=== PATIENT | male | born 1975 | race Caucasian/White ===

== ENCOUNTER 2020-05-26 22:42 | Emergency (ER) | payer SELFPAY ==
[2020-05-26 23:13] VITALS: BP 158/84; PULSE 50; RESP 18; TEMP 36.6; O2SAT 97; BMI 22.8
--- NOTE | 2020-05-26 23:34 | W.ED.DENTAL ---
HPI - Dental/Oral General: Chief complaint: Dental/Oral Stated complaint: dental pain Time Seen by Provider: 05/26/20 23:20 Source: patient Mode of arrival: ambulatory Limitations: no limitations History of Present Illness: HPI Narrative: Patient complains of right lower dental discomfort on the molar 31. Patient appears well. Patient has minimal to no swelling to the jawline. Patient does report history of similar pain. Review of Systems General: Reports: 10 or more systems reviewed and unremarkable except in HPI and below ENMT: Reports: other (dental pain) [facility] ED PFSH: Social History (Updated 12/26/19 @ 12:01 by Betty Brown LPN) Smoking and tobacco status: current every day smoker cigarettes Packs smoked per day: 1 Alcohol intake: never History of recent travel: No Physical Exam Const: COMMON NORMALS: no acute distress and patient oriented x3 GENERAL APPEARANCE: cooperative HENMT: COMMON NORMALS: normocephalic, TM's normal bilaterally and Normal external nose present HEAD & SCALP: normal to inspection and normocephalic NOSE: Normal external nose present TYMPANIC MEMBRANE: TM's normal bilaterally MOUTH: Normal oral and palatal mucosa present THROAT: posterior oropharynx normal Eye: GENERAL EYE: appearance normal, both eyes and all related structures Neck/C-Spine: COMMON NORMALS: full ROM Lymph: LYMPHATIC: no lymphadenopathy noted Chest: COMMONS NORMALS: normal inspection of the chest Resp: COMMON NORMALS: normal respiratory effort EFFORT & INSPECTION: Yes able to speak in complete sentences Cardio: COMMON NORMALS: regular rate and regular rhythm RATE: regular rate RHYTHM: regular rhythm GI: COMMON NORMALS: non-tender Back/Pelvis: COMMON NORMALS: thoracic and lumbar spine normal to inspection Extremity: COMMON NORMALS: normal to inspection Neuro: COMMON NORMALS: patient oriented x3 and moves all extremities Psych: COMMON NORMALS: mental status grossly normal and cooperative Skin: COMMON NORMALS: no rashes or lesions noted GENERAL SKIN EXAM: no rashes or lesions noted Procedures Nerve Block Nerve Block 1: Local Anesthetic: lidocaine 1% and bupivacaine 0.5% Amount of anesthesia used (mL): 4 Side: right Nerve Blocks: other Intraoral Nerve Block: inferior alveolar Procedure Successful: Yes Patient Tolerated Procedure: well Complications: none Additional Comments: Procedure was repeated once due to poor results with the first attempt. Patient had good attempt after the second infiltration. Course Vital Signs: Vital signs: Vital Signs Temperature 97.9 F 05/26/20 23:13 Pulse Rate 50 L 05/26/20 23:13 Respiratory Rate 18 05/26/20 23:13 Blood Pressure 158/84 05/26/20 23:13 Pulse Oximetry 97 05/26/20 23:13 MDM - Dental/Oral MDM Narrative: Medical decision making narrative: Patient comes in today with complaints of right lower dental pain. On exam patient appears well. Respirations are even lungs are clear to auscultation. Patient had tenderness in the third molar area. Minimal swelling was noted to the area. Posterior pharynx was otherwise normal. Differential diagnosis includes but not limited to periapical abscess, impacted wisdom tooth, odontalgia. Patient was given a dental block with good results. Patient be placed on antibiotic and ibuprofen recommended to follow-up with dentist. Patient reported understanding agreed to plan. Discharge Plan Discharge Patient Disposition: Home Clinical Impression: Impacted third molar tooth, Toothache Condition: Stable Prescriptions: New penicillin V potassium 500 mg tablet 500 mg PO QID 10 Days Qty: 40 RF: 0 ibuprofen 800 mg tablet 800 mg PO Q8H PRN (Reason: pain) Qty: 20 RF: 0 No Action ibuprofen 200 mg tablet 800 mg PO BID PRNRF: 0 acetaminophen [Tylenol Extra Strength] 500 mg tablet 500 mg PO BID PRNRF: 0 Discharge Orders: Discharge Order (Routine); Ordered 05/27/20 Ordered By: Paulino Rai Discharge Diet: Usual diet Discharge Activity: Increase activity as tolerated Activity Restrictions/Additional Instructions: Home and rest. Drink plenty of fluids. Good oral care. Follow-up with dentist for further evaluation and treatment. Discharge Date/Time: 05/27/20 00:10 Coding Level of Care Code ED Calendering Machine Operator for Chg Fwd Exam Comprehensive
[2020-05-27] MEDS: penicillin v potassium 250 mg Tablet 500 MG PO (00:07)
== END 2020-05-27 00:10 | disposition home or self-care (01) ==
PROVIDERS: Emergency Provider Nurse Practitioner Family
DX: K01.1 Impacted teeth (principal); F17.210 Nicotine dependence, cigarettes, uncomplicated
CPT/HCPCS: 12345; 99281; 99283; J3490

== ENCOUNTER 2020-05-29 15:27 | Emergency (ER) | payer SELFPAY ==
[2020-05-29] VITALS (13 sets, daily range): BP systolic 81–143; BP diastolic 46–81; PULSE 84–122; RESP 14–28; TEMP 37.3; O2SAT 94–100; BMI 22.8
--- NOTE | 2020-05-29 15:59 | CT_ITS ---
WS: [id number] EXAM: CT neck w con* [id number] DATE OF EXAMINATION: 05/29/2020, 1628 hours COMPARISON: None. HISTORY: 45 years old with neck pain and swelling. Dental pain. Clinical working diagnosis of tooth abscess. TECHNIQUE: Transaxial computed tomography images obtained through the neck utilizing 95 mL of Omnipaq ue 300 IV contrast with images acquired in the bolus phase and viewed in multiple windows with recons tructions. DLP: 714.[address] scans at [facility] use at least one of these dose optimization techniques: automat ed exposure control; mA and/or kV adjustment per patient size (includes targeted exams where dose is matched to clinical indication); or iterative reconstruction. FINDINGS: The visualized mid and inferior intracranial contents are unremarkable. Some mild changes of arthriti s are seen in the cervical spine without evidence of canal compromise. Nasopharyngeal region is normal in appearance. Parapharyngeal fat planes are normal in appearance. To nsillar pillars are slightly prominent. Soft palate is normal in appearance. Tongue is normal in appe arance. There is edema within the sublingual space as well as in the floor the mouth. Extensive edema and fluid is seen in the floor the mouth and cervical juncture region. Gas in the soft tissues is de monstrated. On the right appears to involve the right submandibular salivary gland as well as the tis maddy plane between the mylohyoid muscle and the genioglossus muscle. This is seen bilaterally. On the left the gas extends peripherally superficial to the submandibular salivary gland deep to the platysm as muscle. There appears to be a unruptured right third molar with gas in the area around the tooth w hich appears to breach the cortex and is presumably the site of the infection. Enlargement of the ton sillar pillars is seen. Epiglottis is not appreciably enlarged. Aryepiglottic folds, vocal cords and subglottic airway are normal appearance. Thyroid gland is normal appearance. Lung apices are clear. T here is a small amount of gas within the right internal jugular vein. Most likely this is iatrogenic since the injection was performed from the right upper extremity side rather than gas extending into the internal jugular vein. There is edema which is tracking along the superficial fascial margins to the level of the thoracic inlet. Edema and fluid is superficial to the left sternocleidomastoid muscl e. The abscess pocket appears to extend and unite anteriorly at the level of the hyoid bone. Shotty adenopathy is seen in the anterior cervical chains. Slight shotty lymph nodes are seen in the retrojugular chains. CT/CT neck w con* [id number] IMPRESSION: Imaging findings felt to represent necrosing fasciitis associated with David's angina. Gas and abscess formation in the floor the mouth and cervical junction region demonstrated. Emergent ENT surgeon evaluation and treatment recommended .
--- NOTE | 2020-05-29 16:03 | ED_ITS ---
HPI - General Adult General: Chief complaint: Airway/Esophagus Foreign Body Stated complaint: DENTAL PAIN Time Seen by Provider: 05/29/20 15:53 Source: patient Mode of arrival: ambulatory Limitations: no limitations History of Present Illness: HPI narrative: Mr. Judge is a 45-year-old male who comes in complaining of bilateral mandible and neck pain. Patient stated Thursday he began to have pain in his right lower molar that since that time has progressed to both sides of his jaw and in the lower part of his mouth and throat. Patient is able to handle his own saliva and is able to talk without hoarseness but he states it hurts to swallow and it hurts to speak. He denies any fevers or chills. Patient was seen here initially for this infection and started on penicillin but states his pain has continued and increased. Patient denies any injury to his mouth. Patient is able to handle his own secretions but states that his pain is worsening. Associated symptoms: Deny chest pain, dyspnea, headache(s), nausea, rash, palpitations, syncope or vomiting Review of Systems Const: Denies: fever(s) Eyes: Denies: change in vision or blurry vision ENMT: Reports: throat pain, odynophagia and dental pain; Denies: hoarseness Card: Denies: chest pain, palpitations, syncope, pre-syncope or dyspnea on exertion Resp: Denies: dyspnea, productive cough or non-productive cough GI: Denies: abdominal pain, nausea, vomiting or diarrhea : Denies: flank pain, dysuria, urinary frequency or urinary urgency Musc: Denies: neck pain, back pain or extremity pain Skin/Breast: Denies: rash or pruritus Neuro: Denies: headache(s), numbness in extremities, weakness in extremities or dizziness [facility] ED PFSH: Medical History (Updated 05/29/20 @ 19:46 by Frida Yusuf) No pertinent past medical history Surgical History (Updated 05/29/20 @ 16:33 by Frida Yusuf) No pertinent past surgical history Social History (Updated 12/26/19 @ 12:01 by Betty Brown LPN) Smoking and tobacco status: current every day smoker cigarettes Packs smoked per day: 1 Alcohol intake: never History of recent travel: No Physical Exam Const: COMMON NORMALS: no acute distress, patient oriented x3, no limitations, healthy appearing and well nourished GENERAL APPEARANCE: cooperative, well kempt and well developed HENMT: COMMON NORMALS: normocephalic, atraumatic, external ears normal, EAC's normal and Normal external nose present HEAD & SCALP: normal to inspection, normocephalic and atraumatic FACE & SINUS: normal facial exam and face symmetric NOSE: Normal external nose present and Normal nares present EXTERNAL EAR: Yes external ears normal EXTERNAL AUDITORY CANAL: EAC's normal MOUTH: Normal oral and palatal mucosa present, lip normal, tongue normal and other (Patient with mild trismus but still able to open mouth 2-3 fingerbreaths) Eye: COMMON NORMALS: Equal, round and reactive pupils present and conjunctivae normal GENERAL EYE: appearance normal, both eyes and all related structures ALIGNMENT: Yes alignment normal PERIORBITAL: periorbital findings normal EYELID: eyelids normal CONJUNCTIVA: Yes conjunctivae normal SCLERA: sclerae normal PUPIL: Yes Equal, round and reactive pupils present Neck/C-Spine: COMMON NORMALS: full ROM, no lymphadenopathy, no meningeal signs and no JVD GENERAL: Yes trachea midline and Yes other (Significant swelling of the bilateral submandibular tissues.) Chest: COMMONS NORMALS: normal inspection of the chest and normal palpation of entire chest wall Resp: COMMON NORMALS: normal respiratory effort, No retractions, No use of accessory muscles and clear to auscultation bilaterally EFFORT & INSPECTION: Yes able to speak in complete sentences and Yes symmetric chest movement AUSCULTATION: clear to auscultation bilaterally, no crackles, no rales, no rhonchi and no wheezes Cardio: COMMON NORMALS: no JVD, regular rate, regular rhythm, S1 normal heart sound present and S2 normal heart sound present RATE: regular rate RHYTHM: regular rhythm HEART SOUNDS: S1 normal heart sound present, S2 normal heart sound present, no click, no gallops, no murmurs, no rubs and abnormal split S2 GI: COMMON NORMALS: Soft to palpation and No hepatosplenomegaly present PALPATION: Yes Soft to palpation, No Tenderness to palpation present (GI), No Guarding due to palpation present (GI), No Rigid due to palpation, Yes No hepatosplenomegaly present, No Hernia present, No Palpable mass present and No Pulsatile mass present : COMMON NORMALS: Yes no CVA tenderness BLADDER/KIDNEY EXAM: Yes no CVA tenderness Back/Pelvis: COMMON NORMALS: no CVA tenderness, thoracic and lumbar spine normal to inspection, no thoracic nor lumbar tenderness and thoraco-lumbar ROM normal Extremity: COMMON NORMALS: normal to inspection, full ROM, capillary refill normal, no joint enlargement, no clubbing, cyanosis or edema and no calf tenderness Neuro: COMMON NORMALS: patient oriented x3, CN's II-XII intact bilaterally, moves all extremities, no focal motor deficits and no sensory deficits noted MENINGEAL SIGNS: Yes no meningeal signs SPEECH: speech normal Psych: COMMON NORMALS: mental status grossly normal, Normal thought process present, cooperative, normal affect, speech normal and activity/motor behavior normal APPEARANCE: Yes well kempt SPEECH: Yes normal speech THOUGHT PROCESS: Normal thought process present Skin: COMMON NORMALS: no rashes or lesions noted, turgor normal, no jaundice, no petechiae and no mottling GENERAL SKIN EXAM: no rashes or lesions noted and turgor normal Course ED course: 1455 -[facility] contacted they are currently on diversion and cannot accept patient 1503 -Case reviewed with Manisha Sharma in [place]. They will contact [facility] and contact me again. 1723 -Manisha Sharma is on diversion and cannot take the patient. 1737 - Case reviewed with Dr. Doe at [facility], she will accept the Pt. in transfer. 1822 -Dr. Doe cannot accept the patient as they have no ICU beds and she would like the patient prophylactically intubated. I do believe this would be the appropriate step as the patient is having more difficulty handling secretions. 1939 -patient was fiberoptically intubated by Dr. Cavazos along with her staff. Please see her note for details. [facility] has accepted the patient the ENT doctor k [employer] school professional as well as Dr. Llanes in the ER and he will accept the patient in transfer. Vital Signs: Vital signs: Vital Signs Temperature 99.2 F 05/29/20 15:42 Pulse Rate 84 05/29/20 20:19 Respiratory Rate 14 05/29/20 20:19 Blood Pressure 101/56 05/29/20 20:19 Pulse Oximetry 100 05/29/20 20:19 MDM - General Adult MDM Narrative: Medical decision making narrative: Arrival -Fabio is a nice 45-year-old male who comes in complaining of dental and neck pain. His vital signs reveal a tachycardia and mild tachypnea. Patient clinically appears to have an early David's angina but is able to open his mouth and is handling all of his own secretions. I will start antibiotics on him and image his neck and likely will have to admit or transfer him for IV antibiotics and management by ENT. At this time the patient is managing his own airway and does not need a prophylactic or emergent intubation. Transfer @ 1945 -patient's airway is secured with a 7.0 ET tube. He will be safe for transfer. The closest available facility at this time is [facility] in [place]. Patient will go to their ER for further evaluation and care. Patient is being bolused IV fluids as he received multiple medications for intubation. Blood pressures improving and stable with IV fluid administration. Patient is on a fentanyl drip. Lab Data: Attestation: I reviewed the patient's lab results. Labs: Lab Results 05/29/20 05/29/20 05/29/20 Range/Units 16:04 16:04 16:04 WBC 34.6 H* (4.0-10.0) 10^3/ uL RBC 5.42 H (4.1-5.3) 10^6/u L Hgb 16.0 (11.7-16.6) g/dL Hct 47.4 (42.0-52.0) % MCV 87.5 (80-94) fL MCH 29.5 (28.0-34.0) pg MCHC 33.8 (30.0-36.0) g/dL RDW 12.5 (12.1-15.1) % Plt Count 265 (130-400) 10^3/c mm MPV 10.5 H (7.4-10.4) fL Neut % (Auto) 88.5 % Lymph % (Auto) 4.3 % Morgan % (Auto) 5.8 % Eos % (Auto) 0.0 % Baso % (Auto) 0.2 % Neut # (Auto) 30.58 H (1.8-7.7) 10^3/u L Lymph # (Auto) 1.5 (0.8-4.8) 10^3/u L Morgan # (Auto) 2.0 H (0.2-0.9) 10^3/u L Eos # (Auto) 0.0 (0.0-0.8) 10^3/u L Baso # (Auto) 0.1 (0.0-0.1) 10^3/u L Nucleated RBC % (a uto) 0 % Nucleated RBCs # 0.0 /100WBC Sodium 133 L (136-145) mmol/L Potassium 3.9 (3.5-5.1) mmol/L Chloride 96 L (98-107) mmol/L Carbon Dioxide 24 (22-29) mmol/L Anion Gap 16.9 (5-19) BUN 19 (6-20) mg/dL Creatinine 0.9 (0.7-1.2) mg/dL GFR Calculation 92.1 (90-130) mL/min Glucose 137 H (65-115) mg/dL Calculated Osmolal ity 275 L (285-295) mOsm/k g Lactic Acid 1.4 (0.5-2.2) mmol/L Calcium 9.4 (8.5-10.5) mg/dL Total Bilirubin 1.6 H (0.15-1.2) mg/dL AST 20 (0-40) U/L ALT 20 (0-41) U/L Alkaline Phosphata se 98 (40-130) IU/L Total Protein 8.1 (6.6-8.7) g/dL Albumin 3.9 (3.5-5.2) g/dL Globulin 4.2 (1.3-4.6) g/dL SARS-CoV-2 Ag (Rap id) (Negative) 05/29/20 Range/Units 17:47 WBC (4.0-10.0) 10^3/ uL RBC (4.1-5.3) 10^6/u L Hgb (11.7-16.6) g/dL Hct (42.0-52.0) % MCV (80-94) fL MCH (28.0-34.0) pg MCHC (30.0-36.0) g/dL RDW (12.1-15.1) % Plt Count (130-400) 10^3/c mm MPV (7.4-10.4) fL Neut % (Auto) % Lymph % (Auto) % Morgan % (Auto) % Eos % (Auto) % Baso % (Auto) % Neut # (Auto) (1.8-7.7) 10^3/u L Lymph # (Auto) (0.8-4.8) 10^3/u L Morgan # (Auto) (0.2-0.9) 10^3/u L Eos # (Auto) (0.0-0.8) 10^3/u L Baso # (Auto) (0.0-0.1) 10^3/u L Nucleated RBC % (a uto) % Nucleated RBCs # /100WBC Sodium (136-145) mmol/L Potassium (3.5-5.1) mmol/L Chloride (98-107) mmol/L Carbon Dioxide (22-29) mmol/L Anion Gap (5-19) BUN (6-20) mg/dL Creatinine (0.7-1.2) mg/dL GFR Calculation (90-130) mL/min Glucose (65-115) mg/dL Calculated Osmolal ity (285-295) mOsm/k g Lactic Acid (0.5-2.2) mmol/L Calcium (8.5-10.5) mg/dL Total Bilirubin (0.15-1.2) mg/dL AST (0-40) U/L ALT (0-41) U/L Alkaline Phosphata se (40-130) IU/L Total Protein (6.6-8.7) g/dL Albumin (3.5-5.2) g/dL Globulin (1.3-4.6) g/dL SARS-CoV-2 Ag (Rap id) Negative (Negative) Imaging Data^: CT Neck: Radiologist's impression: [address] [address] [address] Scan Report Signed Patient: Alpesh Judge Unit #: [id number] : [id number] Age/Sex: 45 / M ADM Date: 05/29/20 Loc: ER Room/Bed: Attending Dr: Ordering Provider/Ordering MD: Frida Yusuf DO Date of Service: 05/29/20 Procedure(s): CT neck w con* [id number] Accession Number(s): [id number] Report Number: [id number] WS: [id number] EXAM: CT neck w con* [id number] DATE OF EXAMINATION: 05/29/2020, 1628 hours COMPARISON: None. HISTORY: 45 years old with neck pain and swelling. Dental pain. Clinical working diagnosis of tooth abscess. TECHNIQUE: Transaxial computed tomography images obtained through the neck utilizing 95 mL of Omnipaque 300 IV contrast with images acquired in the bolus phase and viewed in multiple windows with reconstructions. DLP: 714.[address] scans at [facility] use at least one of these dose optimization techniques: automated exposure control; mA and/or kV adjustment per patient size (includes targeted exams where dose is matched to clinical indication); or iterative reconstruction. FINDINGS: The visualized mid and inferior intracranial contents are unremarkable. Some mild changes of arthritis are seen in the cervical spine without evidence of canal compromise. Nasopharyngeal region is normal in appearance. Parapharyngeal fat planes are normal in appearance. Tonsillar pillars are slightly prominent. Soft palate is normal in appearance. Tongue is normal in appearance. There is edema within the sublingual space as well as in the floor the mouth. Extensive edema and fluid is seen in the floor the mouth and cervical juncture region. Gas in the soft tissues is demonstrated. On the right appears to involve the right submandibular salivary gland as well as the tissue plane between the mylohyoid muscle and the genioglossus muscle. This is seen bilaterally. On the left the gas extends peripherally superficial to the submandibular salivary gland deep to the platysmas muscle. There appears to be a unruptured right third molar with gas in the area around the tooth which appears to breach the cortex and is presumably the site of the infection. Enlargement of the tonsillar pillars is seen. Epiglottis is not appreciably enlarged. Aryepiglottic folds, vocal cords and subglottic airway are normal appearance. Thyroid gland is normal appearance. Lung apices are clear. There is a small amount of gas within the right internal jugular vein. Most likely this is iatrogenic since the injection was performed from the right upper extremity side rather than gas extending into the internal jugular vein. There is edema which is tracking along the superficial fascial margins to the level of the thoracic inlet. Edema and fluid is superficial to the left sternocleidomastoid muscle. The abscess pocket appears to extend and unite anteriorly at the level of the hyoid bone. Shotty adenopathy is seen in the anterior cervical chains. Slight shotty lymph nodes are seen in the retrojugular chains. CT/CT neck w con* [id number] IMPRESSION: Imaging findings felt to represent necrosing fasciitis associated with David's angina. Gas and abscess formation in the floor the mouth and cervical junction region demonstrated. Emergent ENT surgeon evaluation and treatment recommended. Dictated By: Bernardo Thrasher MD Signed By: Bernardo Thrasher MD Signed Date/Time: 05/29/20 1700 DD/ 1645 CXR: My impression: ET tube with good placement. No other acute cardiopulmonary findings. Discharge Plan Discharge Patient Disposition: Transfer to ED Clinical Impression: Necrotizing fasciitis, David's angina syndrome Condition: Stable Prescriptions: No Action acetaminophen [Tylenol Extra Strength] 500 mg tablet 500 mg PO BID PRN (Reason: pain/fever) RF: 0 penicillin V potassium 500 mg tablet 500 mg PO QID 10 Days Qty: 40 RF: 0 ibuprofen 800 mg tablet 800 mg PO Q8H PRN (Reason: pain) Qty: 20 RF: 0 Prostate Health 160-100-100 mg-unit-mcg Tablet 1 tab PO DAILY RF: 0 Coding Level of Care Code ED Pot Room Supervisor for Enochg Fwd Exam Comprehensive
[2020-05-29 16:18] LABS: Basophils # 0.1 10^3/uL (0.0-0.1); Basophils % 0.2 %; Hematocrit 47.4 % (42.0-52.0); Lymphocytes # 1.5 10^3/uL (0.8-4.8); Lymphocytes % 4.3 %; Mean Corpuscular HGB Conc 33.8 g/dL (30.0-36.0); Mean Corpuscular Hemoglobin 29.5 pg (28.0-34.0); Mean Corpuscular Volume 87.5 fL (80-94); Mean Platelet Volume 10.5 fL (7.4-10.4); Monocytes % 5.8 %; Neutrophils # 30.58 10^3/uL (1.8-7.7); Neutrophils % 88.5 %; Nucleated Red Blood Cells % 0 %; Platelet Count 265 10^3/cmm (130-400); Red Blood Count 5.42 10^6/uL (4.1-5.3); Red Cell Distribution Width 12.5 % (12.1-15.1)
[2020-05-29] MEDS: morphine 4 mg/mL SDV 1 mL IVP (16:20)
[2020-05-29] MEDS: ondansetron 2 mg/ML SDV 2 mL 4 MG IVP (16:20)
[2020-05-29] MEDS: piperacillin-tazobactam 3.375 GM in sodium chloride 0.9% (plus) 50 ML IV (16:21)
[2020-05-29] MEDS: sodium chloride 0.9% 1,000 ML 100 ML IV (16:21)
[2020-05-29 16:26] LABS: White Blood Count 34.6 10^3/uL (4.0-10.0)
[2020-05-29 16:27] LABS: Lactic Sepsis W/Reflex 1.4 mmol/L (0.5-2.2)
--- NOTE | 2020-05-29 16:27 | PC.NURSE ---
UPON ASSESSMENT PT HAS BILATERAL NECK, JAW AND FACIAL SWELLING. PT CO DYSPNEA. PT HAS A FOUL ODOR TO MOUTH. PT TONSILS ARE WNL. PT BREATHINIG IS TACHYPNEIC AND NONLABORED. PT IS ALERT COOPERATIVE AND ANSWERING QUESTIONS APPROPRIATELY. PT SKIN IS WARM DRY AND PINK.
[2020-05-29 16:28] LABS: Alanine Aminotransferase 20 U/L (0-41); Albumin Level 3.9 g/dL (3.5-5.2); Alkaline Phosphatase 98 IU/L (40-130); Anion Gap 16.9 (5-19); Aspartate Amino Transferase 20 U/L (0-40); Blood Urea Nitrogen 19 mg/dL (6-20); Calcium 9.4 mg/dL (8.5-10.5); Carbon Dioxide 24 mmol/L (22-29); Chloride 96 mmol/L (98-107); Globulin 4.2 g/dL (1.3-4.6); Glomerular Filtration Rate 92.1 mL/min (90-130); Glucose 137 mg/dL (65-115); Osmolality Calculated 275 mOsm/kg (285-295); Potassium 3.9 mmol/L (3.5-5.1); Sodium 133 mmol/L (136-145); Total Bilirubin 1.6 mg/dL (0.15-1.2); Total Protein 8.1 g/dL (6.6-8.7)
[2020-05-29] MEDS: iohexol 300 mg/mL 100 mL Btl IV (16:32)
--- NOTE | 2020-05-29 16:50 | PC.NURSE ---
REPORT GIVEN TO AZALEA TORRES ASSUMED CARE.
[2020-05-29] MEDS: clindamycin 900 MG/50 ML PREMIX 100 MG IV (17:34)
--- NOTE | 2020-05-29 17:49 | PC.NURSE ---
pt swabbed for COVID 19, pt placed on droplet precautions
[2020-05-29 18:12] LABS: SARS Covid-2 Antigen Negative (Negative)
[2020-05-29] MEDS: metroNIDAZOLE IV 500 MG/100 ML PREMIX 100 MG IV (18:18)
--- NOTE | 2020-05-29 18:31 | PC.NURSE ---
nurse was just informed that pt was not going to be transferred to [place]. Disregard discharge documentation information
[2020-05-29] MEDS: lidocaine 2% viscous 15 mL UDC 10 ML MUCOUS MEM (19:22)
[2020-05-29] MEDS: glycopyrrolate 0.2 mg/mL SDV 2 mL IV (19:22)
[2020-05-29] MEDS: midazolam 1 mg/mL INJ 2 mL 6 MG (19:35)
[2020-05-29] MEDS: vecuronium 10 mg SDV IVP (19:37)
[2020-05-29] MEDS: lidocaine 2% INJ 20 mL 10 ML XX (19:38)
[2020-05-29] MEDS: succinylcholine 20 mg/mL SDV 10mL 125 MG IVP (19:38)
[2020-05-29] MEDS: fentaNYL 50 mcg/mL INJ 2mL 100 MCG IVP (19:38)
--- NOTE | 2020-05-29 19:38 | XR_ITS ---
WS: [id number] EXAM: AP CHEST: PORTABLE UPRIGHT DATE OF EXAM: 05/29/2020, 1943 hours COMPARISON: NONE HISTORY: Patient is 45 years old with respiratory failure. Status post intubation.. FINDINGS: The cardiac silhouette is normal in size. The mediastinal contours show an endotracheal tube endin g midclavicular level. The mediastinal contours are otherwise normal. The pulmonary vascularity is normal. The lungs are clear of infiltrate. There is no effusion or pneumothorax. Old right clavicl e fracture deformity seen. Old fracture fixation hardware in the right humerus noted. XR/XR chest 1V portable [id number] IMPRESSION: Endotracheal tube in good position. No definite pulmonary infiltrate or pulmona ry edema.
--- NOTE | 2020-05-29 19:43 | P.CONIM_ITS ---
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 I was consulted to stand by and assist during the effort to secure the patient's airway. Reason for Consult*: Impending airway obstruction Requesting Physcian: Dr. Sena (ER MD) History of Present Illness History of Present Illness Alpesh Judge is a 45 year old male with David's Angina. I was consulted to assist in securing the airway prior to transfer to [place], [place] for definitive care. Review of Systems General: Reports: 10 or more systems reviewed and unremarkable except in HPI and below Meds/Allergies Home Medications and Allergies Home Medications Medication Instructions Recorded Confirmed Last Taken Type acetaminophen 500 mg tablet 500 mg PO BID PRN tab 12/26/19 05/29/20 05/29/20 History penicillin V potassium 500 mg PO QID 10 Days #40 tab 05/26/20 05/29/20 05/29/20 Rx ibuprofen 800 mg PO Q8H PRN #20 tab 05/27/20 05/29/20 05/29/20 Rx saw-vit E-sod [id number] 1 tab PO DAILY 05/29/20 05/29/20 05/29/20 History [Prostate Health] Allergies Allergy/AdvReac Type Severity Reaction Status Date / Time No Known Allergies Allergy Verified 05/29/20 16:06 Current Medications Current Medications Generic Name Dose Route Start Last Admin Trade Name Freq PRN Reason Stop Dose Admin Glycopyrrolate 0.2 mg 05/29/20 19:02 05/29/20 19:22 Robinol IV 0.2 mg Q4H PRN Administration SECRETIONS Sodium Chloride 1,000 mls @ 100 mls/hr 05/29/20 16:00 05/29/20 16:21 Sodium Chloride 0.9% IV 100 mls/hr .Q10H HERNAN Administration Sodium Chloride 1,000 mls @ 100 mls/hr 05/29/20 16:00 05/29/20 16:25 Sodium Chloride 0.9% IV Not Given .Q10H HERNAN Lidocaine HCl 10 ml 05/29/20 19:04 05/29/20 19:22 Lidocaine 2% Viscous MUCOUS MEM 10 ml PRN PRN Administration ALLERGIC REACTION PFSH Acute PFSH: Medical History (Updated 05/29/20 @ 19:46 by Frida Yusuf) No pertinent past medical history Surgical History (Updated 05/29/20 @ 16:33 by Frida Yusuf) No pertinent past surgical history Social History (Updated 12/26/19 @ 12:01 by Betty Brown LPN) Smoking and tobacco status: current every day smoker cigarettes Packs smoked per day: 1 Alcohol intake: never History of recent travel: No Vitals/I&O/Wt Last Vital Signs Temp 99.2 F 05/29/20 15:42 Pulse 96 05/29/20 18:51 Resp 23 H 05/29/20 18:51 BP 120/71 05/29/20 18:51 Pulse Ox 97 05/29/20 18:51 05/29/20 05/29/20 05/29/20 06:59 14:59 22:59 Intake Total 50 / 50 Balance 50 / 50 Weight last 48 hrs Weight 68.039 kg Physical Exam HENMT: COMMON NORMALS: normocephalic and atraumatic HEAD & SCALP: normocephalic and atraumatic MOUTH: trismus, restricted motion and other (There is moderate edema of the floor of mouth.) Eye: COMMON NORMALS: EOMs intact bilaterally and conjunctivae normal CONJUNCTIVA: Yes conjunctivae normal Neck/C-Spine: COMMON NORMALS: full ROM and no lymphadenopathy GENERAL: Yes normal visual inspection and Yes trachea midline Lymph: LYMPHATIC: no lymphadenopathy noted Data Micro: Micro: Microbiology 05/29/20 16:04 Blood Culture - Pr eliminary Blood [facility] 05/29/20 16:00 Blood Culture - Pr eliminary Blood [facility] Other Data: Attestation for Other Data: I personally reviewed and interpreted the following: (I reviewed the patient's CT Scan of the neck.) A&P Additional A&P Information Impression: 45 yo wm with a h/o David's Angina and a threatened airway Plan: I stood by to assist in securing the airway and performed a Fiberoptic Nasopharyngolaryngoscopy on the patient. I am not car installations supervisor and assisted the ER team as a bystander and will unable to participate in the ongoing care of the patient and agree with the transfer to [place]. Procedures Procedure Narrative Procedure Note: verbal informed consent was obtained; the flexible fiberoptic nasopharyngolaryngoscope was used to inspect the patient's airway transnasally; the airway was found to be widely patent and there was minimal to no posterior displacement of the tongue; the remainder of the exam was normal. Coding Level of Care Code Acute Air Turning Machine Feeder for [facility]
--- NOTE | 2020-05-29 19:46 | ANES.PROC ---
Anesthesia Procedures Procedure/Date: 05/29/20 Intubation: Time Out Performed: Yes Consent: requested by attending/covering physician, from patient, risks and benefits reviewed, patient agrees to proceed and emergency procedure Sedative (amount): versed (2mg) Paralytic (amount): succinylcholine (100) Laryngoscope: other (digital flexible bronchoscope) Assist Device Used: fiber optic device ET Tube Size: 7 ET Tube Uncuffed: No Tube Secured Depth (cm): 22 Tube Secured Location: lips Tube Placement Confirmation: visualized tube passing through cords, equal breath sounds bilaterally, no breath sounds over epigastrium and color change noted Patient Tolerated Procedure: well Intubation Complications: difficult intubation Additional Comments: Called to ER for difficult airway, pt with airway swelling. pt assessed and evaluated, plan of care explained. VSS, elected for awake digital flexible bronchoscopy. Pt prepped per Dr. Benavidez with robinul 0.2mg IV, 2% viscous lidocaine gargle, lidocaine nebulizer 2% at 5L a min for 10 min. a loading dose of precedex 1mcg/kg for 10 min along with 2mg versed. 90mm ovassapian oral airway inserted and pt tolerated well. Bronchoscope advanced down airway and glottic opening visualized, advanced through cords and 7.0mm OETT advanced down into trachea. pt further sedated with 100mg propofol and 100mg succinylcholine. ventilated through ETT and color change noted. tolerated well with minimal coughing. Tube secured at 22cm by RT and pt on ventilator. VSS throughout procedure, hand off to ER staff and nursing staff.
--- NOTE | 2020-05-29 20:00 | PC.NURSE ---
1929 Precedex hung at 1mcg/kg over 10 mins 1934 2 mg Versed 1936 136 mg Ketamine 125 mg Succs 100 mcg Fentanyl 1937 Intubated by Jesus Clark MAGNETIC TESTING TECHNICIAN 7 Martiniquais - 22 @ [facility] Present for the Intubation: Dr. Frida Yusuf (ED), Dr. Lugo (ENT), Jesus Clark (MAGNETIC TESTING TECHNICIAN), RT x 2, RN x 2, OR RNs x 2
--- NOTE | 2020-05-29 20:08 | PC.NURSE ---
Report called to Shirley Edmonds at [facility].
[2020-05-29] MEDS: sodium chloride 0.9% 1,000 ML 999 ML IV (20:15)
--- NOTE | 2020-05-29 20:49 | PC.NURSE ---
Air [facility] at bedside, prepping patient for transport.
--- NOTE | 2020-05-29 21:07 | PM.CONSULT ---
Providers/Reason For Consult Consulting Physican/Specialty*: Kentrell Eckert MD Reason for Consult*: Assist with intubation Attending Physician: History of Present Illness History of Present Illness Alpesh Judge is a 45 year old male comes to ED complaining of bilateral mandible and neck pain. Patient stated Thursday he began to have pain in his right lower molar that since that time has progressed to both sides of his jaw and in the lower part of his mouth and throat. CT revealed necrotising fascitis associated with David's angina. Gas and abscess formation in the floor the mouth and cervical junction region demonstrated. Plan was to transfer patient to a facility with OMFS and I was consulted by Dr. Mireles to assist in securing the airway prior to transfer as requested by accepting facitilty. When i went to evaluate the patient is able to handle his own saliva and was able to maintain airway and saturating 95-97 % on RA. He denies any fevers or chills. Patient was seen here 05/27 for this infection and started on penicillin but states his pain has continued and increased. Patient denies any injury to his mouth. Associated symptoms: Denied chest pain, dyspnea, headache(s), nausea, rash, palpitations, syncope or vomiting Review of Systems General: Reports: 10 or more systems reviewed and unremarkable except in HPI and below Meds/Allergies Home Medications and Allergies Home Medications Medication Instructions Recorded Confirmed Last Taken Type acetaminophen 500 mg tablet 500 mg PO BID PRN tab 12/26/19 05/29/20 05/29/20 History penicillin V potassium 500 mg PO QID 10 Days #40 tab 05/26/20 05/29/20 05/29/20 Rx ibuprofen 800 mg PO Q8H PRN #20 tab 05/27/20 05/29/20 05/29/20 Rx saw-vit E-sod [id number] 1 tab PO DAILY 05/29/20 05/29/20 05/29/20 History [Prostate Health] Allergies Allergy/AdvReac Type Severity Reaction Status Date / Time No Known Allergies Allergy Verified 05/29/20 16:06 Current Medications Current Medications Generic Name Dose Route Start Last Admin Trade Name Freq PRN Reason Stop Dose Admin Glycopyrrolate 0.2 mg 05/29/20 19:02 05/29/20 19:22 Robinol IV 0.2 mg Q4H PRN Administration SECRETIONS Sodium Chloride 1,000 mls @ 100 mls/hr 05/29/20 16:00 05/29/20 16:21 Sodium Chloride 0.9% IV 100 mls/hr .Q10H HERNAN Administration Sodium Chloride 1,000 mls @ 100 mls/hr 05/29/20 16:00 05/29/20 16:25 Sodium Chloride 0.9% IV Not Given .Q10H HERNAN Fentanyl 1,000 mcg/ Sodium 100 mls @ 0 mls/hr 05/29/20 20:00 05/29/20 20:14 Chloride IV 25 mcg/hr .Q0M HERNAN 2.5 mls/hr Administration Protocol Per Protocol Sodium Chloride 1,000 mls @ 999 mls/hr 05/29/20 20:00 05/29/20 20:15 Sodium Chloride 0.9% IV 05/29/20 22:00 999 mls/hr .Q1H1M HERNAN Administration Lidocaine HCl 10 ml 05/29/20 19:04 05/29/20 19:22 Lidocaine 2% Viscous MUCOUS MEM 10 ml PRN PRN Administration ALLERGIC REACTION PFSH Acute PFSH: Medical History (Updated 05/29/20 @ 21:29 by Kentrell Eckert MD) No pertinent past medical history Surgical History (Updated 05/29/20 @ 16:33 by Frida Yusuf) No pertinent past surgical history Social History (Updated 12/26/19 @ 12:01 by Betty Brown LPN) Smoking and tobacco status: current every day smoker cigarettes Packs smoked per day: 1 Alcohol intake: never History of recent travel: No Vitals/I&O/Wt Last Vital Signs Temp 99.2 F 05/29/20 15:42 Pulse 84 05/29/20 20:19 Resp 14 05/29/20 20:19 BP 101/56 05/29/20 20:19 Pulse Ox 100 05/29/20 20:19 05/29/20 05/29/20 05/29/20 06:59 14:59 22:59 Intake Total 50 / 50 Balance 50 / 50 Weight last 48 hrs Weight 150 lb Physical Exam Narrative: EXAM NARRATIVE: Gen: Young male, lying down in bed, not in acute respiratory distress HEENT: PERRLA, EOMI, No pallor, no icterus mouth and oral cavity: lower jaw tender and swollen mandibles noted; only able to open 2 finger breadth. NECK: Supple', No Lymphadenopathy Chest: Clear Heart: S1 S2 no m/g/r Abd: Soft, NT, ND, BS +ve Extremities: pulses 2 +; no leg swelling noted PERSONAL FINANCIAL PLANNER: AA0 X 3; No FND Urinary Catheter Management^: Vega: Cath Placed During This Visit: yes Urinary Catheter Date of Insertion: 05/29/20 Urinary Catheter Time of Insertion: 20:30 Data Micro: Micro: Microbiology 05/29/20 16:04 Blood Culture - Pr eliminary Blood SPE[facility]IMEN [facility] 05/29/20 16:00 Blood Culture - Pr eliminary Blood SPECIMEN [facility] A&P Assessment and plan (1) David's angina syndrome: Status: Acute (2) Necrotizing fasciitis: Status: Acute (3) Potential difficult airway on pre-intubation assessment: Status: Acute # Potential difficult airway on pre-intubation assessment in pt. presenting with David's angina/necrotizing fascitis Mallampati 4 and accommodates only 2 finger breadth in between incisors Pt is able to maintain airway and saturating well on room air. As it is high risk intubation - Would try Bronchoscopic intubation without paralyzing but before that recommended ENT evaluation with fibreoptic laryngoscopy and for possible cricothyroidotomy/ emergency tracheostomy if unable to secure airway intubating. Continue Zosyn/Clindamycin Consult Attestations Medical Necessity Statement: impending respiratory failure due to David's angina - evaluation for difficult airway Critical Care Time: Critical Care Time (min): 40 Coding Level of Care Code Acute Computer Terminal Operator for [facility] Diagnoses David's angina syndrome K12.2 Necrotizing fasciitis M72.6 Potential difficult airway on pre-intubation assessment Z01.818; Z91.89 Time Spent (min) 45
== END 2020-05-29 21:14 ==
PROVIDERS: Emergency Provider Emergency Medicine
DX: K12.2 Cellulitis and abscess of mouth (principal); M72.6 Necrotizing fasciitis; F17.210 Nicotine dependence, cigarettes, uncomplicated
CPT/HCPCS: 12345; 36415; 51702; 70491; 71045; 80053; 83605; 85025; 87040; 87426; 94002; 94640; 96365; 96366; 96367; 96375; 99283; 99291; J0330; J2250; J2270; J2405; J2543; J3010; J3490; J7030; Q9967; S0030